=== PATIENT | female | born 1960 ===

== ENCOUNTER 2019-08-08 15:50 | Observation (INO) ==
[~2019-08-08 15:50] MED LIST: PANTOPRAZOLE 40 MG VIAL IV SCH
[2019-08-08] MEDS ORDERED: MORPHINE 4 MG/1 ML VIAL IV ONE (18:40)
[2019-08-08] MEDS ORDERED: ONDANSETRON 4 MG/2 ML VIAL IV ONE (18:41)
[2019-08-08] MEDS ORDERED: ONDANSETRON 4 MG/2 ML VIAL IV PRN (18:44)
[2019-08-08] MEDS ORDERED: DEXTROSE 10% 250 ML BAG IV PRN (18:44)
[2019-08-08] MEDS ORDERED: GLUCAGON 1 MG VIAL IM PRN (18:44)
[2019-08-08] MEDS ORDERED: SODIUM CHLORIDE 0.9% 1,000 ML IV SCH (19:00)
[2019-08-08] MEDS: SODIUM CHLORIDE 0.9% 1,000 ML IV SCH (19:09)
[2019-08-08 19:23] LABS: Basophils % 0.4 % (0.0-0.8); Eosinophils # 0.1 10*3/uL (0.0-0.87); Eosinophils % 0.5 % (0.00-10.9); Hematocrit 42.5 VOL% (35.7-47.0); Hemoglobin 13.5 GM/DL (12.0-16.0); Immature Granulocytes % 0.5 %; Immature Granulocytes Absolute 0.05 #; Lymphocytes # 1.9 10*3/uL (1.4-4.0); Lymphocytes % 18.6 % (21.3-54.2); Mean Corpuscular HGB Conc 31.8 GM/DL (32-36); Mean Corpuscular Volume 85.5 FL (87-102); Mean Platelet Volume 11.5 FL (9.6-12.0); Monocytes % 6.4 % (1.7-12.7); Neutrophils % 73.6 % (38.7-73.9); Platelet Count 192 T/CUMM (130-400); Red Blood Count 4.97 MC/CUMM (3.8-5.5); Red Cell Distribution Width 12.7 % (9.3-17.3); White Blood Count 10.3 T/CUMM (4-12)
[2019-08-08 19:33] LABS: Risk Ratio 4.51; VLDL CHOLESTEROL 21.4 MG/DL
[2019-08-08 19:34] LABS: Alanine Aminotransferase 74 U/L (13-56); Albumin 3.6 G/DL (3.4-5.0); Alkaline Phosphatase 123 U/L (45-117); Aspartate Amino Transferase 39 U/L (0-37); Bilirubin,Total < 0.39 MG/DL (0.2-1.0); Blood Urea Nitrogen 16 MG/DL (7-18); Estimated Glom Filtration Rate 162 ML/MIN; Glucose 120 MG/DL (74-106); Osmolality,Calculated 276.7 MOS/KG (273-304); Total Protein 7.9 G/DL (6.4-8.3)
[2019-08-08] MEDS: ENOXAPARIN 40 MG/0.4 ML SYRINGE SUBCUT SCH (21:08)
[2019-08-09] MEDS: MORPHINE 4 MG/1 ML VIAL IV PRN ×3 (00:29→23:43)
[2019-08-09] MEDS: SODIUM CHLORIDE 0.9% 1,000 ML IV SCH ×2 (03:55→14:04)
[2019-08-09 05:45] LABS: Basophils % 0.3 % (0.0-0.8); Eosinophils % 0.2 % (0.00-10.9); Hematocrit 40.7 VOL% (35.7-47.0); Hemoglobin 13.1 GM/DL (12.0-16.0); Immature Granulocytes % 0.5 %; Immature Granulocytes Absolute 0.05 #; Lymphocytes # 2.3 10*3/uL (1.4-4.0); Mean Corpuscular HGB Conc 32.2 GM/DL (32-36); Mean Corpuscular Volume 84.6 FL (87-102); Mean Platelet Volume 11.8 FL (9.6-12.0); Monocytes % 5.5 % (1.7-12.7); Neutrophils % 70.5 % (38.7-73.9); Platelet Count 195 T/CUMM (130-400); Red Blood Count 4.81 MC/CUMM (3.8-5.5); Red Cell Distribution Width 12.8 % (9.3-17.3); White Blood Count 10.1 T/CUMM (4-12)
[2019-08-09 06:10] LABS: Calcium 8.7 MG/DL (8.5-10.1); Osmolality,Calculated 273.7 MOS/KG (273-304)
[2019-08-09] MEDS: amLODIPine 10 MG TABLET PO SCH (08:47)
[2019-08-09] MEDS: PANTOPRAZOLE 40 MG VIAL IV SCH (08:47)
[2019-08-09] MEDS: ASPIRIN EC 81 MG TABLET PO SCH (08:47)
[2019-08-09 09:04] LABS: Apearance,Urine CLEAR (Clear); Bilirubin,Urine Negative (Negative); Blood, Urine Negative (Negative); Glucose,Urine (UA) Negative (Negative); Ketones,Urine Negative (Negative); Nitrite,Urine Negative (Negative); Protein,Urine Negative; RBC,Urine 1 /HPF (0-4); Squamous Epithelial Cell,Urine Occasional /HPF (0-10); Urine Color Straw (Yellow); Urine Specific Gravity 1.005 (1.001-1.035); Urine Urobilinogen < 2.0 EU/DL (0.2-1.0); WBC,Urine <1 /HPF (0-6)
[2019-08-09] MEDS ORDERED: KETOROLAC 30 MG/1 ML VIAL IV ONE (10:35)
[2019-08-09] MEDS ORDERED: KETOROLAC 15 MG/1 ML VIAL IV PRN (10:46)
[2019-08-09] MEDS: ACETAMINOPHEN 325 MG TABLET PO SCH ×2 (10:49→21:52)
[2019-08-09] MEDS: GABAPENTIN 100 MG CAPSULE PO SCH ×3 (10:49→21:52)
[2019-08-09] MEDS ORDERED: ROSUVASTATIN 20 MG TABLET PO SCH (21:00)
[2019-08-09] MEDS: ENOXAPARIN 40 MG/0.4 ML SYRINGE SUBCUT SCH (21:52)
[2019-08-10] MEDS: SODIUM CHLORIDE 0.9% 1,000 ML IV SCH ×2 (00:56→10:49)
[2019-08-10] MEDS: GABAPENTIN 100 MG CAPSULE PO SCH ×2 (08:10→14:49)
[2019-08-10] MEDS: PANTOPRAZOLE 40 MG VIAL IV SCH (08:10)
[2019-08-10] MEDS: amLODIPine 10 MG TABLET PO SCH (08:10)
[2019-08-10] MEDS: ACETAMINOPHEN 325 MG TABLET PO SCH (08:10)
[2019-08-10] MEDS: ASPIRIN EC 81 MG TABLET PO SCH (08:11)
[2019-08-10 16:15] VITALS: BP 165/98
== END 2019-08-10 17:00 | disposition home or self-care (01) ==
LOC: N.TELES → SUATTDRO 17:27
PROVIDERS: ADMIT Internal Medicine; ATTEND Emergency Medicine

== ENCOUNTER 2021-05-13 18:43 | Observation (INO) ==
[2021-05-13] MEDS ORDERED: GLUCAGON 1 MG VIAL IM PRN (22:15)
[2021-05-13] MEDS ORDERED: MORPHINE 2 MG/1 ML SYRINGE IV PRN (22:15)
[2021-05-13] MEDS ORDERED: DEXTROSE 10% 250 ML BAG IV PRN (22:15)
[2021-05-13] MEDS ORDERED: ONDANSETRON 4 MG/2 ML VIAL IV PRN (22:15)
[2021-05-13] MEDS ORDERED: hydrALAZINE 20 MG/1 ML VIAL IV PRN (22:37)
[2021-05-13 22:57] LABS: Basophils % 0.4 % (0.0-0.8); Eosinophils # 0.1 10*3/uL (0.0-0.87); Eosinophils % 1.8 % (0.00-10.9); Hematocrit 40.2 VOL% (35.7-47.0); Immature Granulocytes % 0.5 %; Immature Granulocytes Absolute 0.04 #; Lymphocytes # 2.4 10*3/uL (1.4-4.0); Lymphocytes % 30.3 % (21.3-54.2); Mean Corpuscular HGB Conc 32.3 GM/DL (32-36); Mean Corpuscular Volume 84.3 FL (87-102); Mean Platelet Volume 10.6 FL (9.6-12.0); Monocytes % 5.8 % (1.7-12.7); Neutrophils % 61.2 % (38.7-73.9); Platelet Count 218 T/CUMM (130-400); Red Blood Count 4.77 MC/CUMM (3.8-5.5); White Blood Count 7.9 T/CUMM (4-12)
[2021-05-13 23:22] LABS: Alanine Aminotransferase 47 U/L (13-56); Albumin 3.2 G/DL (3.4-5.0); Alkaline Phosphatase 95 U/L (45-117); Aspartate Amino Transferase 28 U/L (0-37); Bilirubin,Total < 0.39 MG/DL (0.20-1.00); Blood Urea Nitrogen 13 MG/DL (7-18); Calcium 8.5 MG/DL (8.5-10.1); Carbon Dioxide 28 MMOL/L (21-32); Estimated Glom Filtration Rate 122 ML/MIN; Glucose 113 MG/DL (74-106); Osmolality,Calculated 283.1 MOS/KG (273-304); Potassium 3.6 MMOL/L (3.5-5.1); Sodium 142 MMOL/L (136-145)
[2021-05-14 02:03] LABS: Risk Ratio 2.39; VLDL Cholesterol 16.2 MG/DL
[2021-05-14] MEDS: ASPIRIN EC 325 MG TABLET PO SCH (10:20)
[2021-05-14] MEDS: IBUPROFEN 600 MG TABLET PO SCH ×3 (10:20→21:28)
[2021-05-14] MEDS: ENOXAPARIN 40 MG/0.4 ML SYRINGE SUBCUT SCH (10:21)
[2021-05-14] MEDS: LOSARTAN 25 MG TABLET PO SCH ×2 (10:21→21:29)
[2021-05-14] MEDS: PANTOPRAZOLE 40 MG TABLET PO SCH (10:21)
[2021-05-14] MEDS: GABAPENTIN 100 MG CAPSULE PO SCH ×3 (10:21→21:28)
[2021-05-15 05:41] LABS: Basophils % 0.5 % (0.0-0.8); Eosinophils # 0.1 10*3/uL (0.0-0.87); Eosinophils % 1.5 % (0.00-10.9); Hematocrit 39.4 VOL% (35.7-47.0); Hemoglobin 12.8 GM/DL (12.0-16.0); Immature Granulocytes % 0.8 %; Immature Granulocytes Absolute 0.06 #; Lymphocytes # 2.3 10*3/uL (1.4-4.0); Lymphocytes % 31.5 % (21.3-54.2); Mean Corpuscular HGB Conc 32.5 GM/DL (32-36); Mean Corpuscular Volume 85.1 FL (87-102); Mean Platelet Volume 11.1 FL (9.6-12.0); Monocytes % 8.6 % (1.7-12.7); Neutrophils % 57.1 % (38.7-73.9); Platelet Count 199 T/CUMM (130-400); Red Blood Count 4.63 MC/CUMM (3.8-5.5); Red Cell Distribution Width 13.2 % (9.3-17.3); White Blood Count 7.4 T/CUMM (4-12)
[2021-05-15 06:02] LABS: Calcium 8.9 MG/DL (8.5-10.1); Osmolality,Calculated 281.1 MOS/KG (273-304); Potassium 3.4 MMOL/L (3.5-5.1)
[2021-05-15] MEDS ORDERED: POTASSIUM CHLORIDE 20 MEQ TABLET PO ONE (07:32)
[2021-05-15] MEDS: GABAPENTIN 100 MG CAPSULE PO SCH (08:45)
[2021-05-15] MEDS: ENOXAPARIN 40 MG/0.4 ML SYRINGE SUBCUT SCH (08:45)
[2021-05-15] MEDS: ASPIRIN EC 325 MG TABLET PO SCH (08:45)
[2021-05-15] MEDS: PANTOPRAZOLE 40 MG TABLET PO SCH (08:45)
[2021-05-15] MEDS ORDERED: LOSARTAN 25 MG TABLET PO SCH (09:00)
[2021-05-15 13:33] VITALS: BP 167/71
[2021-05-16] MEDS ORDERED: amLODIPine 10 MG TABLET PO SCH (09:00)
== END 2021-05-15 15:10 | disposition home or self-care (01) ==
LOC: N.TELEN → SUATTDRO 20:33
PROVIDERS: ADMIT Internal Medicine; ATTEND Emergency Medicine